=== PATIENT | male | born 1990 | race Caucasian/White ===

== ENCOUNTER 2020-09-29 06:41 | Observation (INO) ==
[2020-09-29] MEDS ORDERED: Prochlorperazine 10 MG/2 ML VIAL IVP ONE (08:31)
[2020-09-29] MEDS ORDERED: Ketorolac 15 MG/ML VIAL IVP ONE (08:32)
[2020-09-29 09:09] LABS: Hematocrit 44.7 % (37.5-50.1); Hemoglobin 15.5 g/dL (12.9-16.9); Mean Corpuscular HGB Conc 34.7 g/dL (31.6-35.5); Mean Corpuscular Hemoglobin 30.1 pg (28.0-33.3); Mean Corpuscular Volume 86.8 fL (83.0-100.0); Mean Platelet Volume 10.4 fL (9.4-12.4); Platelet Count 205 K/mcL (140-400); Red Blood Count 5.15 M/mcL (4.19-5.50); Red Cell Distribution Width 12.6 % (11.5-14.5)
[2020-09-29 09:31] LABS: BUN/Creatinine Ratio 14 (6-26); Blood Urea Nitrogen 17 mg/dL (6-20); Calcium 9.7 mg/dL (8.6-10.3); Carbon Dioxide 27 mEq/L (23-29); Chloride 103 mEq/L (98-107); Glucose 111 mg/dL (70-105); Osmolality,Calculated 286 (280-300); Potassium 4.2 mEq/L (3.5-5.1); Sodium 137 mEq/L (136-145); eGFR For African Americans > 60 (> 60); eGFR For Non-African Americans > 60 (> 60)
[2020-09-29 09:32] LABS: Troponin I < 0.03 ng/mL (< 0.04)
[2020-09-29] MEDS ORDERED: 0.9 % Sodium Chloride 1,000 ML IV ONE (09:58)
[2020-09-29] MEDS ORDERED: Naloxone 0.4 MG/ML INJ IVP PRN (11:21)
[2020-09-29 12:43] VITALS: BP 138/83
== END 2020-09-29 17:08 | disposition home or self-care (01) ==
LOC: EMEROOARM 06:41 → CDU 06:41
PROVIDERS: ADMIT Internal Medicine; ATTEND Internal Medicine